=== PATIENT | male | born 1990 | race Caucasian/White ===

== ENCOUNTER 2025-01-29 12:17 | Inpatient (IN) ==
--- NOTE | 2025-01-29 12:42 | Emergency Department Note ---
Impression & Plan Cellulitis of arm, left, Elevated troponin I level ED Provider Note NAME: STARLA SANTOS AGE: 34 SEX: M : 1990 ARRIVES VIA: Walk-In INFORMANT: Patient, ED PROVIDER(S): Collins Medina DO CHIEF COMPLAINT: Cellulitis HPI: The patient is a 34-year-old male who presented to the emergency department for an evaluation of swelling on his left elbow. The patient was seen in our facility yesterday for similar complaints. He was having drainage from the elbow. He was sent home on oral antibiotic x 2 and returns today because of ongoing worsening symptoms. He has noticed night sweats. He did not see his family doctor for the symptoms but came directly to the emergency department. The area was outlined on his left elbow and the erythema seems to be going outside the line. ROS: See above HPI for pertinent positives & negatives. A total of 10 systems reviewed and were otherwise negative. PAST MEDICAL HISTORY: See Below PAST SURGICAL HISTORY: See Below FAMILY HISTORY: See Below SOCIAL HISTORY: See Below HOME MEDICATIONS: See Below ALLERGIES: See Below VITALS: See Below PHYSICAL EXAMINATION: GENERAL: Patient is awake alert in no acute distress patient is resting comfortably and showing no signs of anxiety EYES: The conjunctivae are clear. The pupils are round and reactive. EARS, NOSE, MOUTH AND THROAT: The nose is without any evidence of any deformity. Mucous membranes are moist. Tongue is midline. NECK: The neck is nontender and supple. RESPIRATORY: Normal respiratory effort is noted there is no evidence of wheezing rhonchi or rales CARDIOVASCULAR: Tachycardic and regular heart sounds were noted to auscultation. GASTROINTESTINAL: The abdomen is soft. Abdomen is nontender. MUSCULOSKELETAL/EXTREMITIES: There is no evidence of gross deformity full range of motion is noted in the hips and shoulders. SKIN: There is significant erythema and swelling noted about the left elbow. There is an area over the olecranon which is no longer draining. NEUROLOGIC: Patient is awake alert and oriented x3 MEDICAL DECISION MAKING: The patient is a 34-year-old male who presented to the emergency department for left upper extremity swelling. The patient was recently diagnosed with cellulitis. He was started on a course of antibiotics. The patient returns today because of worsening symptoms. Clinically the patient does have a significant cellulitis. He has significant swelling. I discussed the patient's laboratory and radiographic studies with him. His laboratory results would appear to suggest that he has some degree of sepsis. He was tachycardic. He was treated with IV fluids and IV antibiotics. He was reevaluated multiple times. Ultimately the patient was felt to be a better candidate for inpatient management. For this reason I discussed his condition with the on-call [facility] hospitalist. Triage Nursing notes reviewed. Prior medical records reviewed Vital Signs: reviewed and remarkable for tachycardia. Differential diagnosis: Cellulitis, abscess, MRSA infection, DVT, necrotizing fasciitis, dermatitis, drug eruption, allergic reaction, as well as other pathologies. ER treatment provided: See below Diagnostics interpreted by me: ECG: EKG was obtained in emergency department. My interpretation is sinus tachycardia at 150 bpm. There was no ectopy. Nonspecific ST abnormalities noted, this was compared to a tracing from January 26, 2025. No changes were noted. Cardiac Monitoring: An order was placed for continuous cardiac monitoring. The monitor shows a rate of 106 bpm with sinus tachycardia. Laboratory studies: As stated above and show below. Imaging studies: See below. Radiographic imaging was reviewed by myself Consultation(s): The [facility] hospitalist, Dr. Renteria was notified about the patient. Past Med/Surg History Problem List (Updated 01/29/25 @ 15:46 by Collins Medina DO) Elevated troponin I level (Acute) Cellulitis of arm, left (Acute) Abscess of left olecranon bursa (Acute) Hypertension (Acute) Chest pain (Acute) Sleep apnea Hypothyroidism Vitamin D deficiency Elevated triglycerides with high cholesterol Elevated liver function tests Healthcare maintenance Snoring Medical History No pertinent past medical history Surgical History H/O shoulder surgery Family History Aunt Colorectal cancer Uncle Colorectal cancer Grandfather (Paternal) Myocardial infarction Denies family history of Ovarian cancer Prostate cancer Breast cancer Social History Smoking Status: Former smoker Tobacco Type: Cigarettes Hx Alcohol Use: Yes Hx Substance Use: No Preferred Language: Greenlandic Visual Impairment: No Limitations Hearing Ability: Normal marital status: Life Partner Current Living Situation: Significant Other current occupational status: unemployed Feels Safe at Home: Yes Childhood Exposure to Second-Hand Smoke: Yes Dental Care, Regularly: Yes Physical Activity Frequency: Does not Exercise Seatbelt Use: always Allergies Allergies Allergy/AdvReac Type Severity Reaction Status Date / Time No Known Allergies Allergy Verified 01/14/21 14:29 Home Meds Home Medications Medication Instructions Recorded Confirmed Auto Titrating CPAP 01/28/25 01/28/25 Previous Rx's Medication Instructions Recorded amlodipine 5 mg tablet (Norvasc) 5 mg PO DAILY #30 tabs 01/26/25 pantoprazole 40 mg tablet,delayed 40 mg PO DAILY #30 tabs 01/26/25 release (Protonix) amoxicillin 875 mg-potassium 1 tab PO BID 10 days #20 tabs 01/28/25 clavulanate 125 mg tablet naproxen 500 mg tablet 500 mg PO BID PRN pain #20 tabs 01/28/25 sulfamethoxazole 800 1 tab PO Q12H 10 days #20 tabs 01/28/25 mg-trimethoprim 160 mg tablet (Bactrim DS) Results & Data (ED) Vital Signs Vital Signs - 24 hr 01/29/25 12:18 01/29/25 12:28 01/29/25 12:37 Temperature 36.8 C Temperature Source Oral Pulse Rate 122 H 113 H Pulse Rate [Apical] 117 H Pulse Rhythm Regular Pulse Rhythm [Apical] Regular Pulse Strength [Apical] Normal Respiratory Rate 18 18 21 Respiratory Effort / Characteristics Non-Labored Spontaneous Non-Labored Spontaneous Respiratory Depth Normal Normal Respiratory Pattern Regular Blood Pressure 125/82 Blood Pressure [Right Arm] Blood Pressure Mean 96 Blood Pressure Mean [Right Arm] Blood Pressure Position Sitting Blood Pressure Position [Right Arm] Sitting Pulse Oximetry 96 96 Oxygen Delivery Method Room Air Room Air Room Air Sepsis Recent Fever Within 48 Hours No Sepsis New/Unexplained Change in Mental Status No Sepsis Action Taken by Nursing No Action Required 01/29/25 12:37 01/29/25 12:51 01/29/25 12:52 Temperature Temperature Source Pulse Rate 113 H Pulse Rate [Apical] 116 H 113 H Pulse Rhythm Pulse Rhythm [Apical] Pulse Strength [Apical] Respiratory Rate 20 19 Respiratory Effort / Characteristics Non-Labored Spontaneous Respiratory Depth Normal Respiratory Pattern Blood Pressure Blood Pressure [Right Arm] 125/88 128/86 Blood Pressure Mean Blood Pressure Mean [Right Arm] 100 100 Blood Pressure Position Blood Pressure Position [Right Arm] Pulse Oximetry 96 97 Oxygen Delivery Method Room Air Sepsis Recent Fever Within 48 Hours Sepsis New/Unexplained Change in Mental Status Sepsis Action Taken by Nursing 01/29/25 13:07 01/29/25 13:51 01/29/25 14:45 Temperature Temperature Source Pulse Rate Pulse Rate [Apical] 110 H 107 H Pulse Rhythm Pulse Rhythm [Apical] Pulse Strength [Apical] Respiratory Rate 20 Respiratory Effort / Characteristics Non-Labored Spontaneous Respiratory Depth Normal Respiratory Pattern Regular Blood Pressure 126/78 Blood Pressure [Right Arm] 128/86 128/86 Blood Pressure Mean 87 Blood Pressure Mean [Right Arm] 100 100 Blood Pressure Position Blood Pressure Position [Right Arm] Pulse Oximetry 97 95 Oxygen Delivery Method Room Air Sepsis Recent Fever Within 48 Hours Sepsis New/Unexplained Change in Mental Status Sepsis Action Taken by Nursing 01/29/25 15:28 Temperature Temperature Source Pulse Rate Pulse Rate [Apical] 106 H Pulse Rhythm Pulse Rhythm [Apical] Pulse Strength [Apical] Respiratory Rate 20 Respiratory Effort / Characteristics Non-Labored Spontaneous Respiratory Depth Normal Respiratory Pattern Blood Pressure Blood Pressure [Right Arm] Blood Pressure Mean Blood Pressure Mean [Right Arm] Blood Pressure Position Blood Pressure Position [Right Arm] Pulse Oximetry 97 Oxygen Delivery Method Room Air Sepsis Recent Fever Within 48 Hours Sepsis New/Unexplained Change in Mental Status Sepsis Action Taken by Long Term Medications Current Medication List: was personally reviewed by me Laboratory Data Attestation: I reviewed the patient's lab results. 01/29/25 12:40 01/29/25 12:40 Lab Results 01/29/25 01/29/25 Range/Units 12:40 14:49 WBC 14.46 H (4.8-10.8) K/ul RBC 4.27 L (4.70-6.10) M/uL Hgb 14.4 (14.0-18.0) g/dl Hct 40.7 L (42.0-52.0) % MCV 95.3 (80.0-100.0) fL MCH 33.7 (25.0-34.0) pg MCHC 35.4 (32.0-36.0) g/dL RDW Std Deviation 47.3 H (36.4-46.3) fL RDW Coeff of Jc 13.6 (11.5-14.5) % Plt Count 146 (130-400) K/uL MPV 11.1 (9.4-12.4) fL Immature Gran % (Auto) 4.4 % Neut % (Auto) 81.9 % Lymph % (Auto) 8.0 % Grant % (Auto) 5.0 % Eos % (Auto) 0.2 % Baso % (Auto) 0.5 % Neut # (Auto) 11.85 H (1.40-6.50) K/uL Lymph # (Auto) 1.15 L (1.20-3.40) K/uL Grant # (Auto) 0.72 H (0.11-0.59) K/uL Eos # (Auto) 0.03 (0.00-0.50) K/uL Baso # (Auto) 0.07 (0.00-0.20) K/uL Immature Gran # (Auto) 0.64 H (0.01-0.20) K/uL Toxic Granulation 1+ Toxic Vacuolation 1+ Polychromasia 1+ Tear Drop Cells 1+ Sodium 133 L (136-145) mmol/L Potassium 3.4 L (3.5-5.1) mmol/L Chloride 95 L (98-107) mmol/L Carbon Dioxide 26 (21-32) mmol/L Anion Gap 12 H (3-11) BUN 18 (6-23) mg/dl Creatinine 0.78 (0.6-1.4) mg/dl Est Cr Clr Drug Dosing 177.2 ml/min eGFR 120.76 BUN/Creatinine Ratio 23.1 H (10-20) Glucose 131 H (70-99(Fasting)) mg/dl Lactate 1.8 (0.4-2.0) mmol/L Calcium 10.5 H (8.6-10.3) mg/dl Magnesium 0.9 L* (1.7-2.4) mg/dl Total Bilirubin 2.7 H (0.2-1.0) mg/dl Direct Bilirubin 1.6 H (0-0.2) mg/dl AST 65 H (13-39) U/L ALT 49 (7-52) U/L Alkaline Phosphatase 95 (34-104) U/L Troponin I High Sens 42.7 H 40.7 H (0-20) pg/ml Total Protein 8.2 (6.0-8.3) gm/dl Albumin 4.2 (3.4-5.0) gm/dl Procalcitonin 2.93 H (0-0.5) ng/ml Administered Medications Vancomycin HCl 2,000 mg/ (Sodium Chloride) 540 mls @ 200 mls/hr IV NOW ONE Stop: 01/29/25 16:14 Last Admin: 01/29/25 14:35 Dose: 200 mls/hr Documented By: LES Discontinued Medications Ceftriaxone Sodium (Rocephin) 2,000 mg in 50 mls @ 100 mls/hr IV NOW STA Stop: 01/29/25 13:07 Last Infusion: 01/29/25 13:53 Dose: Infused Documented By: Admin: 01/29/25 13:10 Dose: 100 mls/hr Documented By: MYA Magnesium Sulfate/Dextrose (Magnesium Sulfate / D5w) 1 gm in 100 mls @ 100 mls/hr IV Q1H VICKY Stop: 01/29/25 15:32 Last Admin: 01/29/25 14:53 Dose: 100 mls/hr Documented By: Infusion: 01/29/25 14:53 Dose: Infused Documented By: Admin: 01/29/25 14:00 Dose: 100 mls/hr Documented By: MYA Thiamine HCl 200 mg/ Sodium (Chloride) 52 mls @ 210 mls/hr IV NOW STA Stop: 01/29/25 13:47 Last Infusion: 01/29/25 14:34 Dose: Infused Documented By: Admin: 01/29/25 14:17 Dose: 210 mls/hr Documented By: LES Sodium Chloride (Nss) 1,000 mls @ 999 mls/hr IV .Q1H1M ONE Stop: 01/29/25 14:33 Last Infusion: 01/29/25 15:20 Dose: Infused Documented By: [facility] Admin: 01/29/25 13:58 Dose: 999 mls/hr Documented By: MYA Sodium Chloride (Nss) 1,000 mls @ 999 mls/hr IV .Q1H1M ONE Stop: 01/29/25 15:28 Last Admin: 01/29/25 14:37 Dose: 999 mls/hr Documented By: LES Potassium Chloride (Potassium Chloride 10 Meq Tabcr) 10 meq PO NOW STA Stop: 01/29/25 13:34 Last Admin: 01/29/25 15:19 Dose: Not Given Documented By: MARCY Imaging Data Attestation: I personally reviewed and interpreted this imaging study as follows: My Impression: 1 view chest x-ray was obtained in the emergency department. My interpretation is no free air or definite infiltrate, final report below. Radiologist's Impression: Chest X-Ray 01/29/25 12:37 XR chest 1V portable HISTORY: 34 years-old Male Sepsis acute sepsis COMPARISON: Chest radiograph and CTA chest January 26, 2025 TECHNIQUE: AP view of the chest FINDINGS: Cardiac silhouette is upper limits of normal in size. No pneumothorax, pleural effusion, airspace consolidation or pulmonary edema. Bones appear grossly intact. IMPRESSION: No acute process. ACT 112: Negative or not required by law. The above report was generated using voice recognition software. It may contain grammatical, syntax or spelling errors. Electronically signed by: Quinn Lima M.D. 01/29/2025 1:19 PM Discharge Plan Visit Data Chief Complaint: Infection Stated Complaint: INFECTION ED Provider: Collins Medina Discharge Problem: Cellulitis of arm, left, Elevated troponin I level Patient Disposition: Being Evaluated by Hospitalist Condition: Fair Forms Stand Alone Forms: My [facility] [employer] Prescriptions Prescriptions: No Action pantoprazole [Protonix] 40 mg tablet,delayed release (DR/EC) 40 mg PO DAILY Qty: 30 0RF amlodipine [Norvasc] 5 mg tablet 5 mg PO DAILY Qty: 30 0RF (DME) Auto Titrating CPAP Misc Rx Instructions: 5 to 15 cm of water, mask fit patient comfort, heated modification, compliance download capabilities, aero care; sulfamethoxazole-trimethoprim [Bactrim DS] 800-160 mg tablet 1 tab PO Q12H 10 Days Qty: 20 0RF naproxen 500 mg tablet 500 mg PO BID PRN (Reason: pain) Qty: 20 0RF amoxicillin-pot clavulanate 875-125 mg tablet 1 tab PO BID 10 Days Qty: 20 0RF Referrals Referrals: PCP,NO [Primary Care Provider] -
[2025-01-29 13:01] LABS: Hematocrit (blood only) 40.7 % (42.0-52.0); Hemoglobin 14.4 g/dl (14.0-18.0); Mean Corpuscular Hemoglobin 33.7 pg (25.0-34.0); Mean Corpuscular Volume 95.3 fL (80.0-100.0); Platelet Count 146 K/uL (130-400); RDW Standard Deviation 47.3 fL (36.4-46.3); Red Blood Count 4.27 M/uL (4.70-6.10); White Blood Count 14.46 K/ul (4.8-10.8)
[2025-01-29] MEDS: cefTRIAXone SODIUM 2,000 MG/50 ML BAG IV STA (13:10)
[2025-01-29 13:19] LABS: Anion Gap 12.0 (3-11); Blood Urea Nitrogen 18.0 mg/dl (6-23); Calcium 10.5 mg/dl (8.6-10.3); Carbon Dioxide 26.0 mmol/L (21-32); Chloride 95.0 mmol/L (98-107); Creatinine Clr Calc Pharmacy 177.2 ml/min; Glucose 131.0 mg/dl (70-99(Fasting)); Potassium 3.4 mmol/L (3.5-5.1); Sodium 133.0 mmol/L (136-145)
--- NOTE | 2025-01-29 13:20 | XRay Report ---
XR chest 1V portable HISTORY: 34 years-old Male Sepsis acute sepsis COMPARISON: Chest radiograph and CTA chest January 26, 2025 TECHNIQUE: AP view of the chest FINDINGS: Cardiac silhouette is upper limits of normal in size. No pneumothorax, pleural effusion, airspace con solidation or pulmonary edema. Bones appear grossly intact. IMPRESSION: No acute process. ACT 112: Negative or not required by law. The above report was generated using voice recognition software. It may contain grammatical, syntax o r spelling errors. Electronically signed by: Quinn Lima M.D. 01/29/2025 1:19 PM
[2025-01-29 13:27] LABS: Alanine Aminotransferase 49.0 U/L (7-52); Alkaline Phosphatase 95.0 U/L (34-104); Bilirubin,Total 2.7 mg/dl (0.2-1.0); Total Protein 8.2 gm/dl (6.0-8.3)
[2025-01-29 13:28] LABS: Magnesium 0.9 mg/dl (1.7-2.4)
[2025-01-29] MEDS ORDERED: VANCOMYCIN CONSULT ACTIVE PRN ×2 (13:33→15:09)
[2025-01-29 13:34] LABS: Immature Granulocytes # (auto) 0.64 K/uL (0.01-0.20); Immature Granulocytes % (auto) 4.4 %; Polychromasia 1+; Tear Drop Cells 1+; Toxic Granulation 1+; Toxic Vacuolation 1+
[2025-01-29] MEDS: SODIUM CHLORIDE 0.9% 1,000 ML IV ONE ×2 (13:58→14:37)
[2025-01-29] MEDS: MAGNESIUM SULFATE / D5W 1 GM/100 ML BAG IV SCH ×2 (14:00→16:00)
[2025-01-29] MEDS: THIAMINE HCL 200 MG in SODIUM CHLORIDE 0.9% 50 ML IV STA (14:17)
[2025-01-29] MEDS: VANCOMYCIN HCL 2,000 MG in SODIUM CHLORIDE 0.9% 500 ML IV ONE (14:35)
[2025-01-29] MEDS: POTASSIUM CHLORIDE 10 MEQ TABCR PO STA (15:19)
--- NOTE | 2025-01-29 15:24 | Electrocardiogram Report ---
Test Reason : Blood Pressure : */* mmHG Vent. Rate : 115 BPM Atrial Rate : 115 BPM P-R Int : 146 ms QRS Dur : 94 ms QT Int : 322 ms P-R-T Axes : 64 5 -21 degrees QTcB Int : 445 ms Sinus tachycardia Possible Left atrial enlargement Minimal voltage criteria for LVH, may be normal variant Cannot rule out Inferior infarct , age undetermined Nonspecific ST abnormality Abnormal ECG When compared with ECG of 26-Jan-2025 10:41, Nonspecific T wave abnormality, worse in Inferior leads Nonspecific T wave abnormality now evident in Lateral leads Confirmed by Chay Jessica ([id number]) on 01/29/2025 3:24:23 PM Referred By: Confirmed By: Chay Jessica
[2025-01-29] MEDS: POTASSIUM CHLORIDE CRTAB 20 MEQ TABCR PO STA (16:00)
[2025-01-29] MEDS: ACETAMINOPHEN 325 MG TAB PO PRN (16:02)
[2025-01-29] MEDS ORDERED: diphenhydrAMINE 50 MG/ML VIAL IV PRN (16:23)
--- NOTE | 2025-01-29 17:04 | History & Physical Report ---
Date of Service January 29, 2025 Assessment & Plan (1) Severe sepsis: Plan: As above in the History of Present Illness. (2) Acute hyponatremia: Plan: As above in the History of Present Illness. (3) Acute hypokalemia: Plan: As above in the History of Present Illness. (4) Hypercalcemia: Plan: As above in the History of Present Illness. (5) Hypomagnesemia: Plan: As above in the History of Present Illness. (6) Transaminitis: Plan: As above in the History of Present Illness. (7) Hyperbilirubinemia: Plan: As above in the History of Present Illness. (8) Demand ischemia: Plan: As above in the History of Present Illness. (9) MARISSA (obstructive sleep apnea): Plan: Non-compliant with CPAP at home. Observe as patient reports no daytime somnolence. (10) ETOH abuse: Plan: No signs of acute ETOH withdrawal on 01/29/2025 admission date. Of note, patient's sinus tachycardia is due to severe sepsis, not yet septic shock, due to acute left olecranon cellulitis with group A beta hemolytic Streptococcus pyogenes (as noted on 01/28/2025, 5:15pm left elbow I & D culture), R/O streptococcal osteomyelitis of left olecranon, R/O streptococcal bacteremia, R/O invasive streptococcal necrotizing fasciitis. Hence, I have not started patient on CIWA scale or librium/lorazepam schedule on 01/29/2025 admission date. History of Present Illness Chief Complaint: "On Tuesday morning (01/26/2025, 11:00am), I saw a scratch on my left elbow. It did not bleed or itch. I did not have a bug bite there. I didn't fall down or bump into something or anything. I don't know how it got there." "On Tuesday morning (01/27/2025, 9:00am), my left elbow was the size of a baseball. It was red and warm and hurt a little." "On Tuesday evening (01/27/2025, 9:00pm), I started sweating a lot. All night long. And on and on through Tuesday (01/28/2025) and Tuesday (01/29/2025) constant sweating, but no fever or chills. The pain in my left elbow was a lot now, like a 10 (out of 10 point intensity scale) constant pain, and I have not been able to sleep since Tuesday evening (01/27/2025, 9:00pm). "On Tuesday afternoon (01/28/2025, 3:30pm), my left elbow and forearm were really swollen, so I came to [facility] ER, and the ER doctor drained a lot of pus (cf., 01/28/2025, 5:15pm left elbow wound culture demonstrates on 01/29/2025, 9:43am the presence of group A beta hemolytic Streptococcus pyogenes ) and said that I could go home with augmentin 875/125mg PO bid and bactrim DS 800/160mg PO bid, so I went home on Tuesday evening (01/28/2025, 8:15pm), and I took 2 tablets each of the augmentin and the bactrim, but they did not help at all. The swelling got worse and the redness went way past the line the ER doctor sandy on my left elbow and forearm, so I came back to [facility] ER this afternoon (01/29/2025, 12:15pm)." "The ER doctor said I am septic from the infection in my left elbow and that I have to stay to get IV antibiotics now. The pain is still a constant 10 (out of 10 point intensity scale), but I do NOT want to get any narcotics because I have had problems with narcotics in the past and I don't want to get hooked on narcotics. Tylenol IV and toradol IV are fine with me." Primary Care Provider: NO PCP 34 years old male with PMH of FULL CODE @ home, obesity with BMI 34.7 (height 182.9 cm, weight 116.1 kg), former tobacco abuse (cf., patient reports having quit smoking tobacco 2 days ago; previously, patient conceded to smoking 10 cigarettes per day for 7 years) with no subsequent diagnosis of COPD, not on home O2 or home steroids, former ETOH abuse (cf., patient reports having quit drinking 2 days ago; previously, patient conceded to quafffing 1 gallon of vodka per day for 10 years) with no subsequent diagnosis of alcoholic hepatitis or alcoholic cirrhosis, but nominal elevation in AST with baseline range of 123 U/L (07/21/2020, 12:53pm) to 53 U/L (01/28/2025, 4:20pm), former opiate abuse (cf., patient reports having quit abusing oxycodone several years ago; previously, patient conceded to using several oxycodone tablets a day for 10 years) with no subsequent maintenance regimen of methadone, MARISSA non-compliant with CPAP, HTN on amlodipine 5mg PO daily, GERD on protonix 40mg PO daily, who reports: "On Tuesday morning (01/26/2025, 11:00am), I saw a scratch on my left elbow. It did not bleed or itch. I did not have a bug bite there. I didn't fall down or bump into something or anything. I don't know how it got there." "On Tuesday morning (01/27/2025, 9:00am), my left elbow was the size of a baseball. It was red and warm and hurt a little." "On Tuesday evening (01/27/2025, 9:00pm), I started sweating a lot. All night long. And on and on through Tuesday (01/28/2025) and Tuesday (01/29/2025) constant sweating, but no fever or chills. The pain in my left elbow was a lot now, like a 10 (out of 10 point intensity scale) constant pain, and I have not been able to sleep since Tuesday evening (01/27/2025, 9:00pm). "On Tuesday afternoon (01/28/2025, 3:30pm), my left elbow and forearm were really swollen, so I came to [facility] ER, and the ER doctor drained a lot of pus (cf., 01/28/2025, 5:15pm left elbow wound culture demonstrates on 01/29/2025, 9:43am the presence of group A beta hemolytic Streptococcus pyogenes ) and said that I could go home with augmentin 875/125mg PO bid and bactrim DS 800/160mg PO bid, so I went home on Tuesday evening (01/28/2025, 8:15pm), and I took 2 tablets each of the augmentin and the bactrim, but they did not help at all. The swelling got worse and the redness went way past the line the ER doctor sandy on my left elbow and forearm, so I came back to [facility] ER this afternoon (01/29/2025, 12:15pm)." "The ER doctor said I am septic from the infection in my left elbow and that I have to stay to get IV antibiotics now. The pain is still a constant 10 (out of 10 point intensity scale), but I do NOT want to get any narcotics because I have had problems with narcotics in the past and I don't want to get hooked on narcotics. Tylenol IV and toradol IV are fine with me." Patient denies antecedent/coincident fevers, chills, cough, wheeze, sore throat, hemoptysis, shortness of breath, dyspnea on exertion, chest pains, palpitations, pleurisy, nausea, vomiting, diarrhea, abdominal pain, pelvic pain, hematemesis, hematochezia, melena, hematuria, dysuria, frequency, urgency, headaches, dizziness, lightheadedness, visual changes, hearing changes, weakness, falls, syncope, trauma, travel history, sick contacts, or food/drug ingestions novel or new. All other review of systems are reported as negative by the patient on 01/29/2025. In [facility] ER, patient was afebrile @ 36.8 degrees Celsius, HR 122, RR 18, O2 sat 96% on room air, and BP 125/82 (01/29/2025, 12:28pm). cf., repeat RR 21 (01/29/2025, 12:37pm). Exam was noted for a left olecranon bursa that was edematous and fluctuant with thick white purulent discharge from incision site (01/28/2025, 5:15pm, [facility] ER). Exquisite tenderness @ left olecranon with induration, warmth, and circumferential, bright erythema extending far beyond the demarcation lines drawn on 01/28/2025, 5:15pm, [facility] ER), to involve the volar aspect of patient's left forearm, but sparing the left wrist, left hand, and left fingers #1 through #5 completely as of 01/29/2025, 3:04pm, and patient demonstrating the ability to clench the left hand tightly into a fist, but being unable to pronate or supinate the left forearm at all due to sharp pain(s) @ left olecranon when pronating or supinating the left forearm. Of note, there was no malodor, no ulceration, no lymphangitic streaking, no excoriation, and no lichenification associated with this exanthem. In addition, patient reported some "fullness" in the left ear, but otoscopic exam of both left ear and right ear revealed no tenderness of the auditory canals; complete translucency of bilateral tympanic membranes, both of which remained intact/preserved without perforation; absence of hyperemia of the auditory canals and tympanic membranes; and absence of effusion posterior to either tympanic membranes. In addition, patient reported no tenderness on tugging of the tragus/auricle bilaterally and no tenderness on deep palpation of the mastoid bone bilaterally. Labs in [facility] ER included: WBC 14.46, N82 L8 M5 B1, toxic granulation 1+, toxic vacuolation 1+, polychromasia 1+, and tear drop cells 1+, Hb 14.4, MCV 95.3, MCHC 35.4, platelet 146 (01/29/2025, 12:40pm). CRP 22.26 mg/dL (01/29/2025, 2:49pm). ESR 98 mm/hr (01/29/2025, 12:40pm). Procalcitonin #1 2.93 ng/mL (01/29/2025, 12:40pm). Lactic acid #1 1.8 mmol/L (01/29/2025, 12:40pm). Lactic acid #2 (01/29/2025, 4:40pm). Blood culture #3 (01/29/2025, 12:40pm): Blood culture #4 (01/29/2025, 12:53pm): U/A (01/29/2025, 12:37pm): U/A (01/29/2025, 5:25pm): Na 133, K 3.4, BUN 18, creatinine 0.78, glucose 131, Ca 10.5, Mg 0.9, AST 65, ALT 49, ALK PHOS 95, TBili 2.7, DBili 1.6 (01/29/2025, 12:40pm). Troponin-I #1 42.7 pg/mL (01/29/2025, 12:40pm). Troponin-I #2 40.7 pg/mL (01/29/2025, 2:49pm). Additional testing in [facility] ER included: Portable CXR (01/29/2025, 12:37pm): No infiltrate, effusion, cardiomegaly, pulmonary vascular congestion, or pneumothorax (by my review). EKG (01/29/2025, 12:48pm): sinus tach @ 115, SC 146, QTC 445, LAE in II, no acute ST depressions/elevations, TWI, or q waves (by my review). Historical testing in [facility] ER included: Blood culture #1 (01/28/2025, 4:20pm): Blood culture #2 (01/28/2025, 6:42pm): Left elbow I & D culture (01/28/2025, 5:15pm): group A beta hemolytic Streptococcus pyogenes Left elbow x-ray (01/28/2025, 5:15pm): 1. No fracture or dislocation is seen. 2. No significant arthritic changes are noted. 3. No other osseous abnormality is identified. 4. No radiopaque foreign bodies. D-dimer 510 ug/L (01/26/2025, 10:56am). CTA chest (01/26/2025, 12:01pm): No PE. CT abd/pelvis with IV contrast (01/26/2025, 12:01pm): No acute intra-abdominal or intra-pelvic pathology. EKG (01/26/2025, 10:41am): NSR @ 97, SC 144, QTC 472, LAE in II, no acute ST depressions/elevations, TWI, or q waves (by my review). Patient was subsequently admitted to the inpatient hospitalist service @ [facility] on 01/29/2025 with the following diagnoses: 1. Severe sepsis, not yet septic shock, due to acute left olecranon cellulitis with group A beta hemolytic Streptococcus pyogenes (as noted on 01/28/2025, 5:15pm left elbow I & D culture), R/O streptococcal osteomyelitis of left olecranon, R/O streptococcal bacteremia, R/O invasive streptococcal necrotizing fasciitis. 2. Acute hypovolemic hyponatremia with admission Na 133 mmol/L (01/29/2025, 12:40pm). 3. Acute hypokalemia with admission K 3.4 mmol/L (01/29/2025, 12:40pm). 4. Acute hypercalcemia with admission Ca 10.5 mg/dL (01/29/2025, 12:40pm). 5. Acute hypomagnesemia with admission Mg 0.9 mg/dL (01/29/2025, 12:40pm). 6. Chronic transaminitis with admission AST 65 U/L (01/29/2025, 12:40pm). 7. Acute hyperbilirubinemia with admission TBili 2.7 mg/dL, DBili 1.6 mg/dL (01/29/2025, 12:40pm). 8. Acute type II NSTEMI with troponin-I #1 42.7 pg/mL (01/29/2025, 12:40pm), troponin-I #2 40.7 pg/mL (01/29/2025, 2:49pm), due to demand ischemia, due to severe sepsis, not yet septic shock, due to acute left olecranon cellulitis with group A beta hemolytic Streptococcus pyogenes (as noted on 01/28/2025, 5:15pm left elbow I & D culture), R/O streptococcal osteomyelitis of left olecranon, R/O streptococcal bacteremia, R/O invasive streptococcal necrotizing fasciitis. To address #1, patient received ceftriaxone 2g IV x 1 dose (01/29/2025, 1:10pm) and vancomycin 2g IV x 1 dose (01/29/2025, 2:35pm) in [facility] ER bed #C03. Patient will continue with vancomycin 2g IV q12 (day #1 on 01/30/2025, 2:35am), clindamycin 900mg IV q8 (day #1 on 01/29/2025, 5:15pm), and meropenem 1g IV q8 (day #1 on 01/29/2025, 10:00pm) empirically, under the premise that this patient may not only be suffering from streptococcal cellulitis, but may be suffering from concomitant streptococcal osteomyelitis of the left olecranon, streptococcal bacteremia and/or invasive streptococcal necrotizing fasciitis. To this end, I have ordered MRI left elbow with/without IV contrast (01/29/2025, 5:37pm) and I have solicited formal Orthopedic Surgery Service of Dr. Artie Astudillo to evaluate patient for possible invasive streptococcal necrotizing fasciitis. In the interim, I will check repeat vitals, left olecranon/arm exam, WBC w/diff, ESR, CRP, lactic acid, procalcitonin, and Blood culture #1 (01/28/2025, 4:20pm) Blood culture #2 (01/28/2025, 6:42pm) Blood culture #3 (01/29/2025, 12:40pm) Blood culture #4 (01/29/2025, 12:53pm) in the 01/30/2025 am. To address #2, patient received 1 liter of 0.9% NS @ 999 mL/hr (01/29/2025, 1:58pm) and 1 liter of 0.% NS @ 999 mL/hr (01/29/2025, 2:37pm) in [facility] ER bed #C03. I will check repeat Na level in the 01/30/2025 am. Of note, etiology of acute hypovolemic hyponatremia is most probably due to increased insensible losses of sodium due to perspiration and respiration due to severe sepsis, due to acute left olecranon cellulitis with group A beta hemolytic Streptococcus pyogenes (as noted on 01/28/2025, 5:15pm left elbow I & D culture), R/O streptococcal osteomyelitis of left olecranon, R/O streptococcal bacteremia, R/O invasive streptococcal necrotizing fasciitis. To address #3, patient will receive KCl 10mmol IV x 3 doses (starting on 01/29/2025, 4:30pm) in [facility] ER bed #C03. I will check repeat K level in the 01/30/2025 am. Of note, etiology of acute hypokalemia is most probably due to chronic ETOH-mediated faraz-uresis. To address #4, patient received 1 liter of 0.9% NS @ 999 mL/hr (01/29/2025, 1:58pm) and 1 liter of 0.% NS @ 999 mL/hr (01/29/2025, 2:37pm) in [facility] ER bed #C03. I will check repeat Ca level in the 01/30/2025 am. Of note, etiology of acute hypercalcemia is most probably due to acute dehydration, which is due, in turn, to increased insensible losses of water due to perspiration and respiration due to severe sepsis, due to acute left olecranon cellulitis with group A beta hemolytic Streptococcus pyogenes (as noted on 01/28/2025, 5:15pm left elbow I & D culture), R/O streptococcal osteomyelitis of left olecranon, R/O streptococcal bacteremia, R/O invasive streptococcal necrotizing fasciitis. To address #5, patient received magnesium sulfate 1g IV x 2 doses (01/29/2025, 2:00pm, 2:53pm), followed by magnesium sulfate 1g IV x 2 doses (01/29/2025, 4:00pm, 5:00pm) in [facility] ER bed #C03. I will check repeat mg level in the 01/30/2025 am. Of note, etiology of acute hypomagnesemia is most probably due to chronic ETOH-mediated magne-uresis. To address #6, patient awaits repeat AST level testing in the 01/30/2025 am. To address #7, patient awaits TBili and DBili testing in the 01/30/2025 am. To address #8, patient is being observed without further evaluation or interve ntion. Allergies Allergy/AdvReac Type Severity Reaction Status Date / Time No Known Allergies Allergy Verified 01/14/21 14:29 Home Medications Medication Instructions Recorded Confirmed Type amlodipine 5 mg tablet (Norvasc) 5 mg PO DAILY #30 tabs 01/26/25 01/29/25 Rx pantoprazole 40 mg tablet,delayed 40 mg PO DAILY #30 tabs 01/26/25 01/29/25 Rx release (Protonix) Auto Titrating CPAP 01/28/25 01/28/25 History amoxicillin 875 mg-potassium 1 tab PO BID 10 days #20 tabs 01/28/25 01/29/25 Rx clavulanate 125 mg tablet naproxen 500 mg tablet 500 mg PO BID PRN pain #20 tabs 01/28/25 01/29/25 Rx sulfamethoxazole 800 1 tab PO Q12H 10 days #20 tabs 01/28/25 01/29/25 Rx mg-trimethoprim 160 mg tablet (Bactrim DS) Past Med/Surg History Problem List (Updated 01/29/25 @ 18:00 by Avni Varghese MD, PhD) ETOH abuse MARISSA (obstructive sleep apnea) Demand ischemia Hyperbilirubinemia Transaminitis Hypomagnesemia Hypercalcemia Acute hypokalemia Acute hyponatremia Severe sepsis Elevated troponin I level (Acute) Cellulitis of arm, left (Acute) Abscess of left olecranon bursa (Acute) Hypertension (Acute) Chest pain (Acute) Sleep apnea Hypothyroidism Vitamin D deficiency Elevated triglycerides with high cholesterol Elevated liver function tests Healthcare maintenance Snoring Medical History No pertinent past medical history Surgical History H/O shoulder surgery Family History Aunt Colorectal cancer Uncle Colorectal cancer Grandfather (Paternal) Myocardial infarction Denies family history of Ovarian cancer Prostate cancer Breast cancer Social History Smoking Status: Former smoker Tobacco Type: Cigarettes Hx Alcohol Use: Yes Hx Substance Use: No Preferred Language: Armenian Visual Impairment: No Limitations Hearing Ability: Normal marital status: Life Partner Current Living Situation: Significant Other current occupational status: unemployed Feels Safe at Home: Yes Childhood Exposure to Second-Hand Smoke: Yes Dental Care, Regularly: Yes Physical Activity Frequency: Does not Exercise Seatbelt Use: always Review of Systems Constitutional: As above in the History of Present Illness. Physical Exam Constitutional: General appearance: Uncomfortable with patient pointing to his left olecranon/left forearm, yet coherent, cooperative. Wide awake and alert. Not confused, lethargic, or obtunded. Speaks in complete, fluent, and articulate sentences without pause, interruption, cough, or wheeze. HEENT: Normocephalic; atraumatic. EOMI. PERRL No rhinorrhea. No pharyngeal discharge. Neck: Supple, no stridor, bruit, goiter, JVD, or HJR. Lymph: No lymphadenopathy. Chest: Symmetric rise and fall with respirations. Non-tender to palpation. Lungs: Clear to auscultation and percussion. No audible wheeze, pectoriloquy, increase in tactile fremitus, or flatness/dullness to percussion at the bases. Heart: RRR, S1S2, no S3 or S4. Grade II/ early systolic murmur @ LLSB without radiation to the carotids, axilla, or back, and which remains invariant in regards to the respiratory cycle. Abd: Soft, non-tender, non-distended. No rebound, guarding, Herbert's sign, or organomegaly. Bowel sounds auscultated in all 4 quadrants. Ext: No clubbing, cyanosis, or edema. 2+ pedal pulses bilaterally. Skin: No decubitus ulcer or enanthem. Exquisite tenderness @ left olecranon with induration, warmth, and circumferential, bright erythema extending far beyond the demarcation lines drawn on 01/28/2025, 5:15pm, [facility] ER), to involve the volar aspect of patient's left forearm, but sparing the left wrist, left hand, and left fingers #1 through #5 completely as of 01/29/2025, 3:04pm, and patient demonstrating the ability to clench the left hand tightly into a fist, but being unable to pronate or supinate the left forearm at all due to sharp pain(s) @ left olecranon when pronating or supinating the left forearm. Of note, there was no malodor, no ulceration, no lymphangitic streaking, no excoriation, and no lichenification associated with this exanthem. In addition, patient reported some "fullness" in the left ear, but otoscopic exam of both left ear and right ear revealed no tenderness of the auditory canals; complete translucency of bilateral tympanic membranes, both of which remained intact/preserved without perforation; absence of hyperemia of the auditory canals and tympanic membranes; and absence of effusion posterior to either tympanic membranes. In addition, patient reported no tenderness on tugging of the tragus/auricle bilaterally and no tenderness on deep palpation of the mastoid bone bilaterally. Neuro: Alert and oriented in regards to person, place, time, or situation. 5/5 motor strength in all 4 extremities, both proximally and distally. Urology: No li catheter. No urethral discharge. Psych: No suicidal ideation. No homicidal ideation. Results & Data Results & Data Vital Signs (Past 12 Hours) Vital Signs Temp Pulse Pulse Resp BP BP Pulse Ox 01/29/25 16:04 102 H 22 134/93 95 01/29/25 15:28 106 H 20 97 01/29/25 14:45 126/78 01/29/25 13:51 107 H 128/86 95 01/29/25 13:07 110 H 20 128/86 97 01/29/25 12:52 113 H 19 128/86 97 01/29/25 12:51 113 H 01/29/25 12:37 116 H 20 125/88 96 01/29/25 12:37 113 H 21 96 01/29/25 12:28 36.8 C 122 H 18 125/82 96 01/29/25 12:18 117 H 18 O2 Del Method 01/29/25 16:04 Room Air 01/29/25 15:28 Room Air 01/29/25 14:45 01/29/25 13:51 Room Air 01/29/25 13:07 01/29/25 12:52 Room Air 01/29/25 12:51 01/29/25 12:37 01/29/25 12:37 Room Air 01/29/25 12:28 Room Air 01/29/25 12:18 Room Air Laboratory Results As above in the History of Present Illness. Diagnostic Findings As above in the History of Present Illness. Medications Administered As above in the History of Present Illness. Code Status & VTE Plan VTE Prophylaxis Plan VTE Prophylaxis will be ordered: Yes PG Care Time/CCT Total # of Minutes Spent Total Time Spent with Patient: Total time spent is greater than 50% in coordination of care (as documented) at patient's floor/unit and/or counseling patient: Coding Level of Care Code 30217 INT INP/OBS CARE 3/75MIN Diagnoses Severe sepsis A41.9; R65.20 Acute hyponatremia E87.1 Acute hypokalemia E87.6 Hypercalcemia E83.52 Hypomagnesemia E83.42 Transaminitis R74.01 Hyperbilirubinemia E80.6 Demand ischemia I24.89 MARISSA (obstructive sleep apnea) G47.33 ETOH abuse F10.10
[2025-01-29] MEDS: ACETAMINOPHEN 1,000 MG/100 ML VIAL IV STA (17:05)
[2025-01-29] MEDS: KETOROLAC 30 MG/ML VIAL IV STA (17:06)
[2025-01-29] MEDS: POTASSIUM CHLORIDE / WTR 10 MEQ/100 ML PLCT IV SCH (17:06)
[2025-01-29] MEDS: LIDOCAINE 5% 1 PATCH TD STA (17:07)
[2025-01-29] MEDS: REMOVE LIDODERM PATCH SCH (18:13)
[2025-01-29] MEDS: CLINDAMYCIN/D5W 900 MG/50 ML BAG IV SCH (18:14)
[2025-01-29] MEDS ORDERED: Ativan PO Alcohol Withdrawal--Active Protocol PO PRN (18:54)
[2025-01-29] MEDS ORDERED: LORazepam 1 MG TAB PO PRN ×3 (18:54)
[2025-01-29 19:19] LABS: Appearance Urine Clear (Clear); Bacteria Urine Automated None Seen (None Seen); Cast Urine Automated 0-2 /lpf (0-2); Glucose Urine UA Negative (Negative); RBC Urine Automated 0-2 /hpf (0-2); WBC Urine Automated 0-5 /hpf (0-5)
[2025-01-29] MEDS: FOLIC ACID 1 MG TAB PO SCH (20:14)
[2025-01-29] MEDS: MULTIVITAMIN TAB PO SCH (20:14)
[2025-01-29] MEDS: KETOROLAC 30 MG/ML VIAL IV PRN (20:18)
--- NOTE | 2025-01-29 21:55 | Magnetic Resonance Report ---
EXAM: MR elbow LT wo con CLINICAL HISTORY: R/O osteomyelitis, necrotizing fasciitis TECHNIQUE: Multiplanar multisequence MR imaging of the left elbow was acquired without contrast. Images were referred for interpretation. The patient did not complete the procedure(limited study). COMPARISON: dated 01/28/2025. FINDINGS: Bones: Normal alignment of the humerus, radius, and ulna. No fractures, dislocations, or bone marrow edema. Joints: Mild left radiocapitellar and humeroulnar synovial effusion. Normal joint space without significant narrowing. Unremarkable radiocapitellar articulation. Unremarkable humeroulnar articulation. Normal articular cartilage. Compartmental Ligaments and tendons: The lateral compartment, lateral epicondyle, common extensor tendon, and radial collateral ligament are unremarkable. The medial compartment shows signal alteration at the common flexor tendon and ulnar collateral ligament, suggesting medial epicondylitis (golfer's elbow). The posterior compartment is unremarkable. Nerves: Normal appearance and course of the median, ulnar, and radial nerves. No evidence of nerve compression or abnormal signal changes. Soft Tissues: Extensive soft tissue edema is seen at the distal arm around the left elbow and proximal forearm. Most appreciated at the posterior aspect. Findings suggest posttraumatic contusion, soft tissue cellulitis vs necrotizing fasciitis. Strict follow-up and contrast-enhanced MRI study are recommended. IMPRESSION: 1. Extensive soft tissue edema is seen at the distal arm around the left elbow and proximal forearm. Most appreciated at the posterior aspect. Findings suggest posttraumatic contusion, soft tissue cellulitis vs necrotizing fasciitis. Strict follow-up and contrast-enhanced MRI study are recommended. (Acute). 2. Mild left radiocapitellar and humeroulnar synovial effusion. (Indeterminate). 3. 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 4. The current findings explain the current clinical status. 5. The comparison matches the radiographic findings. Electronically signed by Fermin Appiah 01-29-2025 9:54 PM
[2025-01-29] MEDS: MEROPENEM 500 MG in SYRINGE 0 ML IV SCH (22:22)
[2025-01-29] MEDS: VANCOMYCIN HCL 2,000 MG in SODIUM CHLORIDE 0.9% 500 ML IV SCH (22:25)
[2025-01-30] MEDS: MELATONIN 3 MG TAB PO SCH (01:01)
[2025-01-30 06:01] LABS: Hematocrit (blood only) 34.2 % (42.0-52.0); Hemoglobin 12.2 g/dl (14.0-18.0); Immature Granulocytes # (auto) 0.14 K/uL (0.01-0.20); Immature Granulocytes % (auto) 1.5 %; Mean Corpuscular Hemoglobin 34.5 pg (25.0-34.0); Mean Corpuscular Volume 96.6 fL (80.0-100.0); Platelet Count 141 K/uL (130-400); RDW Standard Deviation 47.0 fL (36.4-46.3); Red Blood Count 3.54 M/uL (4.70-6.10); White Blood Count 9.19 K/ul (4.8-10.8)
[2025-01-30 06:17] LABS: Alanine Aminotransferase 43.0 U/L (7-52); Albumin Globulin Ratio 0.9 (0.9-2); Alkaline Phosphatase 86.0 U/L (34-104); Anion Gap 11.0 (3-11); Bilirubin,Total 2.5 mg/dl (0.2-1.0); Blood Urea Nitrogen 18.0 mg/dl (6-23); Calcium 9.0 mg/dl (8.6-10.3); Carbon Dioxide 22.0 mmol/L (21-32); Chloride 100.0 mmol/L (98-107); Creatinine Clr Calc Pharmacy 194.7 ml/min; Globulin 3.7 gm/dl (2.5-4.0); Glucose 106.0 mg/dl (70-99(Fasting)); Potassium 3.3 mmol/L (3.5-5.1); Sodium 133.0 mmol/L (136-145); Total Protein 7.2 gm/dl (6.0-8.3)
--- NOTE | 2025-01-30 07:41 | Pharmacy Report ---
Pharmacy PK ABX Note - Date of Service January 30, 2025 - Assessment and Plan Laboratory Tests 01/29/25 01/29/25 01/30/25 12:40 12:40 05:41 WBC 14.46 H 9.19 Procalcitonin 2.93 H 01/30/25 05:41 WBC Procalcitonin Pending Assessment 34 year old M receiving IV Vancomycin + Clindamycin + Meropenem for treatment of acute left olecranon cellulitis with group A beta hemolytic Streptococcus pyogenes, R/O streptococcal osteomyelitis of left olecranon, streptococcal bacteremia, and invasive streptococcal necrotizing fasciitis. Pertinent microbiologic data includes: group A beta hemolytic Streptococcus pyogenes (01/28/2025, left elbow I & D culture) Blood & Urine cultures pending Patient started on PO Bactrim + Augmentin on 01/28 prior to returning to [facility] for worsening cellulitis. WBC down to normal range today; afebrile. Procal elevated yesterday, pending today. Day # 2 of inpatient IV antimicrobial therapy. Plan Vancomycin * Loading dose: 2000 mg IV x 1 * Maintenance dose: 2000 mg IV every 12 hours * Regimen is predicted to achieve target AUC/RAMIRO of 400-600 mg/L.hr * Random level ordered for: 01/31/25 Clindamycin 900mg IV Q8H Meropenem 500mg IV Q6H Pharmacy will continue to follow and will adjust dose/frequency as necessary. Thank you. Pharmacy has transitioned to AUC monitoring for vancomycin. AUC/RAMIRO is the preferred PK/PD target and is associated with decreased risk of nephrotoxicity compared to traditional trough targets.
[2025-01-30] MEDS: LIDOCAINE 5% 1 PATCH TD SCH (08:37)
[2025-01-30] MEDS: THIAMINE HCL 100 MG TAB PO SCH (08:37)
[2025-01-30] MEDS: POTASSIUM CHLORIDE CRTAB 20 MEQ TABCR PO SCH (09:44)
--- NOTE | 2025-01-30 09:55 | Orthopedic Consultation ---
Date of Service January 30, 2025 Assessment & Plan (1) Cellulitis of arm, left: * Case/imaging and labs reviewed and discussed with Dr James * Exam and imaging findings consistent with superficial cellulitis of the elbow region. No deep abscess/collection noted on MRI * No indication for further surgical debridement at this time * Continue IV antibiotics * Packing changed today, recommend daily packing changes and dressings as needed * Disposition: TBD * Daily treatment: Physical Therapy/ Occupational Therapy per protocol * Weight bearing status: WBAT * Pain control * Remainder care per primary team * Will continue to follow History of Present Illness Reason for Consultation: . Left elbow pain Requesting Physician: . Attending Physician: Mynor Renteria MD . Patient0 is a 34y/o male, with left elbow pain. PMH including EtOH abuse, MARISSA, HTN, hypothyroid. Presents to hospital with ongoing left elbow pain. Patient has had worsening left elbow pain over the past few days, first noticed over the weekend when he developed a small pustule over the tip of the elbow which opened Tuesday began draining, presented to ED Tuesday where bedside I&D was performed and patient was discharged oral antibiotics. However since that time pain, redness, drainage have persisted and he presented to the ED yesterday afternoon for further evaluation. Current workup including MRI of the left elbow demonstrating superficial cellulitis, no discrete abscess, wound culture from bedside I&D growing strep pyogenes. Admitted to hospital medicine team for IV antibiotics. Orthopedics consulted for management recommendations. At time of exam patient lying comfortably in bed, no acute distress. Endorses constant moderate pain of the left elbow and forearm secondary to soft tissue swelling. Active motion of the elbow does not significantly increase pain. Has not changed packing since initial I&D 2 days ago. Notes widespread redness from the upper arm across posterior elbow and distally through forearm. Currently WBC 9 down from 14 yesterday, ESR 105, C-RP 22. Allergies Allergy/AdvReac Type Severity Reaction Status Date / Time No Known Allergies Allergy Verified 01/14/21 14:29 Home Medications Medication Instructions Recorded Confirmed Type amlodipine 5 mg tablet (Norvasc) 5 mg PO DAILY #30 tabs 01/26/25 01/29/25 Rx pantoprazole 40 mg tablet,delayed 40 mg PO DAILY #30 tabs 01/26/25 01/29/25 Rx release (Protonix) Auto Titrating CPAP 01/28/25 01/28/25 History amoxicillin 875 mg-potassium 1 tab PO BID 10 days #20 tabs 01/28/25 01/29/25 Rx clavulanate 125 mg tablet naproxen 500 mg tablet 500 mg PO BID PRN pain #20 tabs 01/28/25 01/29/25 Rx sulfamethoxazole 800 1 tab PO Q12H 10 days #20 tabs 01/28/25 01/29/25 Rx mg-trimethoprim 160 mg tablet (Bactrim DS) Past Med/Surg History Problem List (Updated 01/29/25 @ 18:00 by Avni Varghese MD, PhD) ETOH abuse MARISSA (obstructive sleep apnea) Demand ischemia Hyperbilirubinemia Transaminitis Hypomagnesemia Hypercalcemia Acute hypokalemia Acute hyponatremia Severe sepsis Elevated troponin I level (Acute) Cellulitis of arm, left (Acute) Abscess of left olecranon bursa (Acute) Hypertension (Acute) Chest pain (Acute) Sleep apnea Hypothyroidism Vitamin D deficiency Elevated triglycerides with high cholesterol Elevated liver function tests Healthcare maintenance Snoring Medical History No pertinent past medical history Surgical History H/O shoulder surgery Family History Aunt Colorectal cancer Uncle Colorectal cancer Grandfather (Paternal) Myocardial infarction Denies family history of Ovarian cancer Prostate cancer Breast cancer Social History Smoking Status: Former smoker Tobacco Type: Cigarettes Second Hand Exposure: No; Do You Dip or Chew Tobacco: No; Tobacco Cessation Education Requested by Patient: No Hx Alcohol Use: Yes Alcohol type: hard liquor Hx Substance Use: No Preferred Language: Faroese Communication Ability: Effective Visual Impairment: No Limitations Hearing Ability: Normal Cto Required: No Beliefs That Will Affect Care: None marital status: Life Partner Current Living Situation: Family current occupational status: unemployed Other Information That Helps Us Care for You: No Feels Safe at Home: Yes Safety Concerns: Feels Safe At This Time Childhood Exposure to Second-Hand Smoke: Yes Dental Care, Regularly: Yes Physical Activity Frequency: Does not Exercise Seatbelt Use: always Assistive Devices: None Review of Systems All systems reviewed & are unremarkable except as noted in HPI & below. Physical Exam . * General: Alert and oriented, no acute distress * Constitutional: well-developed, well-nourished. * Respiratory: Normal respiratory effort, no distress * Gastrointestinal: No tenderness to palpation, no rigidity or guarding. * Skin: No rash or lesion. * Neurologic: Grossly normal * Musculoskeletal: Left elbow with widespread erythema from proximal upper arm, posteriorly across olecranon, distally through forearm. Moderate soft tissue edema throughout forearm stab incision over olecranon with packing in place, scant serous drainage, no purulence appreciated. Mild TTP of the posterior elbow/olecranon region, also diffusely throughout forearm secondary to edema. AROM elbow flexion 0-120 degrees without significant pain. AROM wrist flexion/extension, finger motions intact. Sensation intact radial/median/ulnar nerve distributions. Brisk capillary refill. Results & Data Results & Data Laboratory Results . 01/29/25 18:47 Urine Culture - Pending Urine,Clean Catch 01/29/25 12:53 Aerobic Blood Culture - Pending Blood Anaerobic Blood Culture - Pending 01/29/25 12:40 Aerobic Blood Culture - Pending Blood Anaerobic Blood Culture - Pending 01/30/25 01/29/25 01/29/25 05:41 18:58 18:47 WBC 9.19 RBC 3.54 L Hgb 12.2 L Hct 34.2 L MCV 96.6 MCH 34.5 H MCHC 35.7 RDW Std Deviation 47.0 H RDW Coeff of Jc 13.1 Plt Count 141 MPV 10.7 Immature Gran % (Auto) 1.5 Neut % (Auto) 83.5 Lymph % (Auto) 10.2 Moca % (Auto) 3.6 Eos % (Auto) 0.8 Baso % (Auto) 0.4 Neut # (Auto) 7.67 H Lymph # (Auto) 0.94 L Moca # (Auto) 0.33 Eos # (Auto) 0.07 Baso # (Auto) 0.04 Immature Gran # (Auto) 0.14 Toxic Granulation Toxic Vacuolation Polychromasia Tear Drop Cells ESR 105 H Sodium 133 L Potassium 3.3 L Chloride 100 Carbon Dioxide 22 Anion Gap 11 BUN 18 Creatinine 0.71 Est Cr Clr Drug Dosing 194.7 eGFR 124.24 BUN/Creatinine Ratio 25.4 H Glucose 106 H Lactate 1.3 1.9 Calcium 9.0 Magnesium Total Bilirubin 2.5 H Direct Bilirubin AST 57 H ALT 43 Alkaline Phosphatase 86 Troponin I High Sens C-Reactive Protein 22.55 H Total Protein 7.2 Albumin 3.5 Globulin 3.7 Albumin/Globulin Ratio 0.9 Procalcitonin Urine Color Dark Yellow Urine Appearance Clear Urine pH 7.0 Ur Specific [place] 1.028 Urine Protein 1+ H Urine Glucose (UA) Negative Urine Ketones Trace H Urine Blood Negative Urine Nitrite Positive A Urine Bilirubin 2+ H Urine Urobilinogen Positive H Ur Leukocyte Esterase 1+ H Urine WBC (Auto) 0-5 Urine RBC (Auto) 0-2 U Hyaline Cast (Auto) 0-2 U Epithel Cells (Auto) 3-5 H Urine Bacteria (Auto) None Seen Granular Casts Present A Urine Comment 01/29/25 01/29/25 14:49 12:40 WBC 14.46 H RBC 4.27 L Hgb 14.4 Hct 40.7 L MCV 95.3 MCH 33.7 MCHC 35.4 RDW Std Deviation 47.3 H RDW Coeff of Jc 13.6 Plt Count 146 MPV 11.1 Immature Gran % (Auto) 4.4 Neut % (Auto) 81.9 Lymph % (Auto) 8.0 Moca % (Auto) 5.0 Eos % (Auto) 0.2 Baso % (Auto) 0.5 Neut # (Auto) 11.85 H Lymph # (Auto) 1.15 L Moca # (Auto) 0.72 H Eos # (Auto) 0.03 Baso # (Auto) 0.07 Immature Gran # (Auto) 0.64 H Toxic Granulation 1+ Toxic Vacuolation 1+ Polychromasia 1+ Tear Drop Cells 1+ ESR 98 H Sodium 133 L Potassium 3.4 L Chloride 95 L Carbon Dioxide 26 Anion Gap 12 H BUN 18 Creatinine 0.78 Est Cr Clr Drug Dosing 177.2 eGFR 120.76 BUN/Creatinine Ratio 23.1 H Glucose 131 H Lactate 1.8 Calcium 10.5 H Magnesium 0.9 L* Total Bilirubin 2.7 H Direct Bilirubin 1.6 H AST 65 H ALT 49 Alkaline Phosphatase 95 Troponin I High Sens 40.7 H 42.7 H C-Reactive Protein 22.26 H Total Protein 8.2 Albumin 4.2 Globulin Albumin/Globulin Ratio Procalcitonin 2.93 H Urine Color Urine Appearance Urine pH Ur Specific [place] Urine Protein Urine Glucose (UA) Urine Ketones Urine Blood Urine Nitrite Urine Bilirubin Urine Urobilinogen Ur Leukocyte Esterase Urine WBC (Auto) Urine RBC (Auto) U Hyaline Cast (Auto) U Epithel Cells (Auto) Urine Bacteria (Auto) Granular Casts Urine Comment Diagnostic Findings . Chest X-Ray 01/29/25 12:37 XR chest 1V portable HISTORY: 34 years-old Male Sepsis acute sepsis COMPARISON: Chest radiograph and CTA chest January 26, 2025 TECHNIQUE: AP view of the chest FINDINGS: Cardiac silhouette is upper limits of normal in size. No pneumothorax, pleural effusion, airspace consolidation or pulmonary edema. Bones appear grossly intact. IMPRESSION: No acute process. ACT 112: Negative or not required by law. The above report was generated using voice recognition software. It may contain grammatical, syntax or spelling errors. Electronically signed by: Quinn Lima M.D. 01/29/2025 1:19 PM Elbow MRI 01/29/25 17:37 EXAM: MR elbow LT wo con CLINICAL HISTORY: R/O osteomyelitis, necrotizing fasciitis TECHNIQUE: Multiplanar multisequence MR imaging of the left elbow was acquired without contrast. Images were referred for interpretation. The patient did not complete the procedure(limited study). COMPARISON: CR dated 01/28/2025. FINDINGS: Bones: Normal alignment of the humerus, radius, and ulna. No fractures, dislocations, or bone marrow edema. Joints: Mild left radiocapitellar and humeroulnar synovial effusion. Normal joint space without significant narrowing. Unremarkable radiocapitellar articulation. Unremarkable humeroulnar articulation. Normal articular cartilage. Compartmental Ligaments and tendons: The lateral compartment, lateral epicondyle, common extensor tendon, and radial collateral ligament are unremarkable. The medial compartment shows signal alteration at the common flexor tendon and ulnar collateral ligament, suggesting medial epicondylitis (golfer's elbow). The posterior compartment is unremarkable. Nerves: Normal appearance and course of the median, ulnar, and radial nerves. No evidence of nerve compression or abnormal signal changes. Soft Tissues: Extensive soft tissue edema is seen at the distal arm around the left elbow and proximal forearm. Most appreciated at the posterior aspect. Findings suggest posttraumatic contusion, soft tissue cellulitis vs necrotizing fasciitis. Strict follow-up and contrast-enhanced MRI study are recommended. IMPRESSION: 1. Extensive soft tissue edema is seen at the distal arm around the left elbow and proximal forearm. Most appreciated at the posterior aspect. Findings suggest posttraumatic contusion, soft tissue cellulitis vs necrotizing fasciitis. Strict follow-up and contrast-enhanced MRI study are recommended. (Acute). 2. Mild left radiocapitellar and humeroulnar synovial effusion. (Indeterminate). 3. 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 4. The current findings explain the current clinical status. 5. The comparison matches the radiographic findings. Electronically signed by Fermin Appiah 01-29-2025 9:54 PM PG Care Time/CCT Total # of Minutes Spent Total Time Spent with Patient: Total time spent is greater than 50% in coordination of care (as documented) at patient's floor/unit and/or counseling patient: [place] [address] IN/OBS CONSULT LVL 4,60M Patient Type New History Problem Focused Exam Problem Focused Diagnoses Cellulitis of arm, left L03.114
[2025-01-30 10:04] LABS: Magnesium 1.7 mg/dl (1.7-2.4)
[2025-01-30] MEDS: LACTOBACILLUS ACIDOPHILUS 1 GM PACK PO SCH (11:56)
[2025-01-30] MEDS ORDERED: cefTRIAXone SODIUM 2,000 MG/50 ML BAG IV SCH (13:00)
--- NOTE | 2025-01-30 14:17 | Hospitalist Progress Note ---
Date of Service January 30, 2025 Assessment & Plan (1) Severe sepsis: Plan: Present on admission. Now resolved. Blood cultures are negative (2) Cellulitis of arm, left: Plan: Strep pyogenes isolated from cultures obtained during bedside I&D upon admission. Meropenem has been discontinued. He remains on intravenous clindamycin and vancomycin, day 2. Appreciate orthopedic consultation recommendations. Improving (3) Acute hyponatremia: Plan: Mild on admission. Improved (4) Acute hypokalemia: Plan: Oral replacement ordered. Serial labs (5) Hypercalcemia: Plan: Mild on admission. No intervention needed. Will follow (6) Hypomagnesemia: Plan: Corrected with parenteral replacement. Serial labs (7) Transaminitis: Plan: Mild on admission. Probably from excessive alcohol intake. (8) Hyperbilirubinemia: Plan: Mild on admission. Probably from excessive alcohol intake. (9) Demand ischemia: Plan: Troponin minimally elevated. No chest pain. No acute EKG changes. No evidence of acute coronary syndrome. (10) MARISSA (obstructive sleep apnea): Plan: Non-compliant with CPAP at home. Observe as patient reports no daytime somnolence. (11) ETOH abuse: Plan: Alcohol intake cessation highly recommended. No signs of acute ETOH withdrawal on 01/29/2025 admission date. Plan Hopeful discharge to home on oral antibiotic within the next day or 2 Admission and Anticipated Discharge Date Admission Date: January 29, 2025 Subjective Alert and oriented. No distress. Improved since admission. He had bedside I&D performed on the left elbow by orthopedic surgery on admission. Strep pyogenes isolated. Blood cultures are negative. Meropenem has been discontinued. He remains on clindamycin and vancomycin for now. Oral potassium replacement started. Magnesium level has been corrected to 1.7. Hopefully he can go home on oral antibiotics within the next day or 2 Review of Systems 2 Review of Systems: Constitutionalno fever or chills ENTno blurred vision, no double vision, no epistaxis, no sore throat Respiratoryno cough, no wheezing, no shortness of breath Cardiacno palpitations, no chest pain, no syncope Saulo nausea, vomiting, diarrhea, melena, hematochezia GUno urinary retention, no urinary incontinence, no dysuria, no hematuria Musculoskeletalleft elbow discomfort has lessened. No muscle tenderness Skinno bruising, no rashes, no pruritus Neurono isolated weakness, no paresthesia, no weakness Psychno depression, no anxiety Physical Exam 2 Physical Exam: General-alert and oriented x3, no fever, no chills HEENT-head atraumatic and normocephalic, pupils equal and reactive to light, extraocular muscles intact Neck-no lymphadenopathy or thyromegaly, trachea midline Chest-clear to auscultation. No rales, wheezing or rhonchi Cardiac-regular rate and rhythm, normal S1 and S2 Abdomen-normal bowel sounds, no hepatosplenomegaly Extremities-no cyanosis, clubbing, or edema. Left arm swelling and tenderness extending above and below the left elbow. Packing in place in the left elbow I&D area Neuro-cranial nerves II through XII intact, motor and sensory function within normal limits, strength symmetrical, no focal deficits Psych-normal affect, normal mood Results & Data Results & Data Vital Signs (Past 12 Hours) Vital Signs Temp Pulse Pulse Resp BP Pulse Ox O2 Del Method 01/30/25 11:22 36.9 C 102 H 18 131/81 96 Room Air 01/30/25 07:04 37.1 C 103 H 18 126/86 96 Room Air 01/30/25 03:10 37.1 C 97 H 18 124/78 97 Room Air Laboratory Results 01/30/25 05:41 01/30/25 05:41 PG Care Time/CCT Total # of Minutes Spent Total Time Spent with Patient: Total time spent is greater than 50% in coordination of care (as documented) at patient's floor/unit and/or counseling patient: Coding Level of Care Code 08630 SUB INP/OBS CARE 3/50MIN Diagnoses Severe sepsis A41.9; R65.20 Cellulitis of arm, left L03.114 Acute hyponatremia E87.1 Acute hypokalemia E87.6 Hypercalcemia E83.52 Hypomagnesemia E83.42 Transaminitis R74.01 Hyperbilirubinemia E80.6 Demand ischemia I24.89 MARISSA (obstructive sleep apnea) G47.33 ETOH abuse F10.10
[2025-01-30] MEDS: ACETAMINOPHEN 1,000 MG/100 ML VIAL IV PRN (18:39)
[2025-01-31 06:40] LABS: Hematocrit (blood only) 34.2 % (42.0-52.0); Hemoglobin 12.2 g/dl (14.0-18.0); Immature Granulocytes # (auto) 0.23 K/uL (0.01-0.20); Immature Granulocytes % (auto) 2.5 %; Mean Corpuscular Hemoglobin 35.0 pg (25.0-34.0); Mean Corpuscular Volume 98.0 fL (80.0-100.0); Platelet Count 159 K/uL (130-400); RDW Standard Deviation 48.0 fL (36.4-46.3); Red Blood Count 3.49 M/uL (4.70-6.10); White Blood Count 9.06 K/ul (4.8-10.8)
[2025-01-31 07:01] LABS: Anion Gap 9.0 (3-11); Blood Urea Nitrogen 16.0 mg/dl (6-23); Calcium 9.1 mg/dl (8.6-10.3); Carbon Dioxide 24.0 mmol/L (21-32); Chloride 101.0 mmol/L (98-107); Creatinine Clr Calc Pharmacy 203.2 ml/min; Glucose 96.0 mg/dl (70-99(Fasting)); Potassium 3.4 mmol/L (3.5-5.1); Sodium 134.0 mmol/L (136-145)
[2025-01-31] MEDS: VANCOMYCIN LEVEL ONE (07:32)
[2025-01-31 07:50] VITALS: BP 132/87; PULSE 92; RESP 18; TEMP 97.3; O2SAT 95
[2025-01-31] MEDS: VANCOMYCIN HCL 1,750 MG in SODIUM CHLORIDE 0.9% 500 ML IV SCH (08:49)
--- NOTE | 2025-01-31 08:56 | Orthopedic Progress Note ---
Date of Service January 31, 2025 Assessment & Plan (1) Cellulitis of arm, left: * Continue Current Treatment * Continue antibiotics, daily dressing changes * Packing removed today, did not replace * No indication for for further orthopedic procedure at this time * Disposition: TBD * Daily treatment: Physical Therapy/ Occupational Therapy per protocol * Weight bearing status: As tolerated * Continue to monitor for ABLA * Pain control * Will continue to monitor during hospitalization Subjective .Active Problems: Left elbow cellulitis 34y/o male with left elbow cellulitis, s/p bedside I&D in ED. Doing well overall, pain managed and improved function. Remains stiff/swollen throughout the forearm however improved erythema overnight. Denies fever/chills, chest pain/SOB, nausea/vomiting. Otherwise no complaints. Review of Systems All systems reviewed & are unremarkable except as noted in HPI & below. Physical Exam * General: Alert and oriented, no acute distress * Constitutional: well-developed, well-nourished. * Respiratory: Normal respiratory effort, no distress * Gastrointestinal: No tenderness to palpation, no rigidity or guarding. * Skin: No rash or lesion. * Neurologic: Grossly normal * Musculoskeletal: Left elbow with widespread erythema from proximal upper arm, posteriorly across olecranon, distally through forearm. This is markedly improved from yesterday. Moderate soft tissue edema throughout forearm. Stab incision over olecranon with packing in place, scant serous drainage, no purulence noted. Minimal TTP of the posterior elbow/olecranon region, also diffusely throughout forearm secondary to edema. AROM elbow flexion 0-120 degrees without significant pain. AROM wrist flexion/extension, finger motions intact. Sensation intact radial/median/ulnar nerve distributions. Brisk capillary refill. Results & Data Results & Data Laboratory Results . Diagnostic Findings . PG Care Time/CCT Total # of Minutes Spent Total Time Spent with Patient: Total time spent is greater than 50% in coordination of care (as documented) at patient's floor/unit and/or counseling patient: Coding [place] [address] SUB INP/OBS CARE 1/25MIN Patient Type Established History Problem Focused Exam Problem Focused Medical Decision Making Straight Forward Diagnoses Cellulitis of arm, left L03.114
--- NOTE | 2025-01-31 10:33 | Discharge Summary ---
Discharge Summary Date of Service January 31, 2025 Principal Dx & Hospital Course #1 = Principal Diagnosis (1) Severe sepsis: Present on admission. Now resolved. Blood cultures are negative (2) Cellulitis of arm, left: Strep pyogenes isolated from cultures obtained during bedside I&D upon admission. Meropenem has been discontinued. He continued treatment while hospitalized with intravenous clindamycin and vancomycin. He will be discharged home on Augmentin 875 mg twice daily for 10 more days. Appreciate orthopedic consultation recommendations. He will follow-up with orthopedics within 1 week. Improved (3) Acute hyponatremia: Mild on admission. Resolved (4) Acute hypokalemia: Oral replacement ordered. Serial labs. Improving. He will continue oral potassium at discharge (5) Hypercalcemia: Mild on admission. No intervention needed. Will follow (6) Hypomagnesemia: Corrected with parenteral replacement. Serial labs (7) Transaminitis: Mild on admission. Probably from excessive alcohol intake. (8) Hyperbilirubinemia: Mild on admission. Probably from excessive alcohol intake. (9) Demand ischemia: Troponin minimally elevated. No chest pain. No acute EKG changes. No evidence of acute coronary syndrome. (10) MARISSA (obstructive sleep apnea): Non-compliant with CPAP at home. Observe as patient reports no daytime somnolence. (11) ETOH abuse: Alcohol intake cessation highly recommended. No signs of acute ETOH withdrawal on 01/29/2025 admission date. Plan Home today, January 31, on Augmentin. Follow-up with orthopedic surgery as soon as possible. Admission HPI Per Admitting Provider 34 years old male with PMH of FULL CODE @ home, obesity with BMI 34.7 (height 182.9 cm, weight 116.1 kg), former tobacco abuse (cf., patient reports having quit smoking tobacco 2 days ago; previously, patient conceded to smoking 10 cigarettes per day for 7 years) with no subsequent diagnosis of COPD, not on home O2 or home steroids, former ETOH abuse (cf., patient reports having quit drinking 2 days ago; previously, patient conceded to quafffing 1 gallon of vodka per day for 10 years) with no subsequent diagnosis of alcoholic hepatitis or alcoholic cirrhosis, but nominal elevation in AST with baseline range of 123 U/L (07/21/2020, 12:53pm) to 53 U/L (01/28/2025, 4:20pm), former opiate abuse (cf., patient reports having quit abusing oxycodone several years ago; previously, patient conceded to using several oxycodone tablets a day for 10 years) with no subsequent maintenance regimen of methadone, MARISSA non-compliant with CPAP, HTN on amlodipine 5mg PO daily, GERD on protonix 40mg PO daily, who reports: "On Tuesday morning (01/26/2025, 11:00am), I saw a scratch on my left elbow. It did not bleed or itch. I did not have a bug bite there. I didn't fall down or bump into something or anything. I don't know how it got there." "On Tuesday morning (01/27/2025, 9:00am), my left elbow was the size of a baseball. It was red and warm and hurt a little." "On Tuesday evening (01/27/2025, 9:00pm), I started sweating a lot. All night long. And on and on through Tuesday (01/28/2025) and Tuesday (01/29/2025) constant sweating, but no fever or chills. The pain in my left elbow was a lot now, like a 10 (out of 10 point intensity scale) constant pain, and I have not been able to sleep since Tuesday evening (01/27/2025, 9:00pm). "On Tuesday afternoon (01/28/2025, 3:30pm), my left elbow and forearm were really swollen, so I came to [facility] ER, and the ER doctor drained a lot of pus (cf., 01/28/2025, 5:15pm left elbow wound culture demonstrates on 01/29/2025, 9:43am the presence of group A beta hemolytic Streptococcus pyogenes ) and said that I could go home with augmentin 875/125mg PO bid and bactrim DS 800/160mg PO bid, so I went home on Tuesday evening (01/28/2025, 8:15pm), and I took 2 tablets each of the augmentin and the bactrim, but they did not help at all. The swelling got worse and the redness went way past the line the ER doctor sandy on my left elbow and forearm, so I came back to [facility] ER this afternoon (01/29/2025, 12:15pm)." "The ER doctor said I am septic from the infection in my left elbow and that I have to stay to get IV antibiotics now. The pain is still a constant 10 (out of 10 point intensity scale), but I do NOT want to get any narcotics because I have had problems with narcotics in the past and I don't want to get hooked on narcotics. Tylenol IV and toradol IV are fine with me." Patient denies antecedent/coincident fevers, chills, cough, wheeze, sore throat, hemoptysis, shortness of breath, dyspnea on exertion, chest pains, palpitations, pleurisy, nausea, vomiting, diarrhea, abdominal pain, pelvic pain, hematemesis, hematochezia, melena, hematuria, dysuria, frequency, urgency, headaches, dizziness, lightheadedness, visual changes, hearing changes, weakness, falls, syncope, trauma, travel history, sick contacts, or food/drug ingestions novel or new. All other review of systems are reported as negative by the patient on 01/29/2025. In [facility] ER, patient was afebrile @ 36.8 degrees Celsius, HR 122, RR 18, O2 sat 96% on room air, and BP 125/82 (01/29/2025, 12:28pm). cf., repeat RR 21 (01/29/2025, 12:37pm). Exam was noted for a left olecranon bursa that was edematous and fluctuant with thick white purulent discharge from incision site (01/28/2025, 5:15pm, [facility] ER). Exquisite tenderness @ left olecranon with induration, warmth, and circumferential, bright erythema extending far beyond the demarcation lines drawn on 01/28/2025, 5:15pm, [facility] ER), to involve the volar aspect of patient's left forearm, but sparing the left wrist, left hand, and left fingers #1 through #5 completely as of 01/29/2025, 3:04pm, and patient demonstrating the ability to clench the left hand tightly into a fist, but being unable to pronate or supinate the left forearm at all due to sharp pain(s) @ left olecranon when pronating or supinating the left forearm. Of note, there was no malodor, no ulceration, no lymphangitic streaking, no excoriation, and no lichenification associated with this exanthem. In addition, patient reported some "fullness" in the left ear, but otoscopic exam of both left ear and right ear revealed no tenderness of the auditory canals; complete translucency of bilateral tympanic membranes, both of which remained intact/preserved without perforation; absence of hyperemia of the auditory canals and tympanic membranes; and absence of effusion posterior to either tympanic membranes. In addition, patient reported no tenderness on tugging of the tragus/auricle bilaterally and no tenderness on deep palpation of the mastoid bone bilaterally. Labs in [facility] ER included: WBC 14.46, N82 L8 M5 B1, toxic granulation 1+, toxic vacuolation 1+, polychromasia 1+, and tear drop cells 1+, Hb 14.4, MCV 95.3, MCHC 35.4, platelet 146 (01/29/2025, 12:40pm). CRP 22.26 mg/dL (01/29/2025, 2:49pm). ESR 98 mm/hr (01/29/2025, 12:40pm). Procalcitonin #1 2.93 ng/mL (01/29/2025, 12:40pm). Lactic acid #1 1.8 mmol/L (01/29/2025, 12:40pm). Lactic acid #2 (01/29/2025, 4:40pm). Blood culture #3 (01/29/2025, 12:40pm): Blood culture #4 (01/29/2025, 12:53pm): U/A (01/29/2025, 12:37pm): U/A (01/29/2025, 5:25pm): Na 133, K 3.4, BUN 18, creatinine 0.78, glucose 131, Ca 10.5, Mg 0.9, AST 65, ALT 49, ALK PHOS 95, TBili 2.7, DBili 1.6 (01/29/2025, 12:40pm). Troponin-I #1 42.7 pg/mL (01/29/2025, 12:40pm). Troponin-I #2 40.7 pg/mL (01/29/2025, 2:49pm). Additional testing in [facility] ER included: Portable CXR (01/29/2025, 12:37pm): No infiltrate, effusion, cardiomegaly, pulmonary vascular congestion, or pneumothorax (by my review). EKG (01/29/2025, 12:48pm): sinus tach @ 115, DE 146, QTC 445, LAE in II, no acute ST depressions/elevations, TWI, or q waves (by my review). Historical testing in [facility] ER included: Blood culture #1 (01/28/2025, 4:20pm): Blood culture #2 (01/28/2025, 6:42pm): Left elbow I & D culture (01/28/2025, 5:15pm): group A beta hemolytic Streptococcus pyogenes Left elbow x-ray (01/28/2025, 5:15pm): 1. No fracture or dislocation is seen. 2. No significant arthritic changes are noted. 3. No other osseous abnormality is identified. 4. No radiopaque foreign bodies. D-dimer 510 ug/L (01/26/2025, 10:56am). CTA chest (01/26/2025, 12:01pm): No PE. CT abd/pelvis with IV contrast (01/26/2025, 12:01pm): No acute intra-abdominal or intra-pelvic pathology. EKG (01/26/2025, 10:41am): NSR @ 97, DE 144, QTC 472, LAE in II, no acute ST depressions/elevations, TWI, or q waves (by my review). Patient was subsequently admitted to the inpatient hospitalist service @ [facility] on 01/29/2025 with the following diagnoses: 1. Severe sepsis, not yet septic shock, due to acute left olecranon cellulitis with group A beta hemolytic Streptococcus pyogenes (as noted on 01/28/2025, 5:15pm left elbow I & D culture), R/O streptococcal osteomyelitis of left olecranon, R/O streptococcal bacteremia, R/O invasive streptococcal necrotizing fasciitis. 2. Acute hypovolemic hyponatremia with admission Na 133 mmol/L (01/29/2025, 12:40pm). 3. Acute hypokalemia with admission K 3.4 mmol/L (01/29/2025, 12:40pm). 4. Acute hypercalcemia with admission Ca 10.5 mg/dL (01/29/2025, 12:40pm). 5. Acute hypomagnesemia with admission Mg 0.9 mg/dL (01/29/2025, 12:40pm). 6. Chronic transaminitis with admission AST 65 U/L (01/29/2025, 12:40pm). 7. Acute hyperbilirubinemia with admission TBili 2.7 mg/dL, DBili 1.6 mg/dL (01/29/2025, 12:40pm). 8. Acute type II NSTEMI with troponin-I #1 42.7 pg/mL (01/29/2025, 12:40pm), troponin-I #2 40.7 pg/mL (01/29/2025, 2:49pm), due to demand ischemia, due to severe sepsis, not yet septic shock, due to acute left olecranon cellulitis with group A beta hemolytic Streptococcus pyogenes (as noted on 01/28/2025, 5:15pm left elbow I & D culture), R/O streptococcal osteomyelitis of left olecranon, R/O streptococcal bacteremia, R/O invasive streptococcal necrotizing fasciitis. To address #1, patient received ceftriaxone 2g IV x 1 dose (01/29/2025, 1:10pm) and vancomycin 2g IV x 1 dose (01/29/2025, 2:35pm) in [facility] ER bed #C03. Patient will continue with vancomycin 2g IV q12 (day #07/10 on 01/30/2025, 2:35am), clindamycin 900mg IV q8 (day #1/ on 01/29/2025, 5:15pm), and meropenem 1g IV q8 (day #07/10 on 01/29/2025, 10:00pm) empirically, under the premise that this patient may not only be suffering from streptococcal cellulitis, but may be suffering from concomitant streptococcal osteomyelitis of the left olecranon, streptococcal bacteremia and/or invasive streptococcal necrotizing fasciitis. To this end, I have ordered MRI left elbow with/without IV contrast (01/29/2025, 5:37pm) and I have solicited formal Orthopedic Surgery Service of Dr. Artie Astudillo to evaluate patient for possible invasive streptococcal necrotizing fasciitis. In the interim, I will check repeat vitals, left olecranon/arm exam, WBC w/diff, ESR, CRP, lactic acid, procalcitonin, and Blood culture #1 (01/28/2025, 4:20pm) Blood culture #2 (01/28/2025, 6:42pm) Blood culture #3 (01/29/2025, 12:40pm) Blood culture #4 (01/29/2025, 12:53pm) in the 01/30/2025 am. To address #2, patient received 1 liter of 0.9% NS @ 999 mL/hr (01/29/2025, 1:58pm) and 1 liter of 0.% NS @ 999 mL/hr (01/29/2025, 2:37pm) in [facility] ER bed #C03. I will check repeat Na level in the 01/30/2025 am. Of note, etiology of acute hypovolemic hyponatremia is most probably due to increased insensible losses of sodium due to perspiration and respiration due to severe sepsis, due to acute left olecranon cellulitis with group A beta hemolytic Streptococcus pyogenes (as noted on 01/28/2025, 5:15pm left elbow I & D culture), R/O streptococcal osteomyelitis of left olecranon, R/O streptococcal bacteremia, R/O invasive streptococcal necrotizing fasciitis. To address #3, patient will receive KCl 10mmol IV x 3 doses (starting on , 4:30pm) in [facility] ER bed #C03. I will check repeat K level in the 01/30/2025 am. Of note, etiology of acute hypokalemia is most probably due to chronic ETOH-mediated faraz-uresis. To address #4, patient received 1 liter of 0.9% NS @ 999 mL/hr (01/29/2025, 1:58pm) and 1 liter of 0.% NS @ 999 mL/hr (01/29/2025, 2:37pm) in [facility] ER bed #C03. I will check repeat Ca level in the 01/30/2025 am. Of note, etiology of acute hypercalcemia is most probably due to acute dehydration, which is due, in turn, to increased insensible losses of water due to perspiration and respiration due to severe sepsis, due to acute left olecranon cellulitis with group A beta hemolytic Streptococcus pyogenes (as noted on 01/28/2025, 5:15pm left elbow I & D culture), R/O streptococcal osteomyelitis of left olecranon, R/O streptococcal bacteremia, R/O invasive streptococcal necrotizing fasciitis. To address #5, patient received magnesium sulfate 1g IV x 2 doses (01/29/2025, 2:00pm, 2:53pm), followed by magnesium sulfate 1g IV x 2 doses (01/29/2025, 4:00pm, 5:00pm) in [facility] ER bed #C03. I will check repeat mg level in the 01/30/2025 am. Of note, etiology of acute hypomagnesemia is most probably due to chronic ETOH-mediated magne-uresis. To address #6, patient awaits repeat AST level testing in the 01/30/2025 am. To address #7, patient awaits TBili and DBili testing in the 01/30/2025 am. To address #8, patient is being observed without further evaluation or intervention. Discharge Exam General-alert and oriented x3, no fever, no chills HEENT-head atraumatic and normocephalic, pupils equal and reactive to light, extraocular muscles intact Neck-no lymphadenopathy or thyromegaly, trachea midline Chest-clear to auscultation. No rales, wheezing or rhonchi Cardiac-regular rate and rhythm, normal S1 and S2 Abdomen-normal bowel sounds, no hepatosplenomegaly Extremities-no cyanosis, clubbing, or edema. Left arm swelling and tenderness extending above and below the left elbow is resolving. Packing from left elbow incision and drainage site has been removed. Neuro-cranial nerves II through XII intact, motor and sensory function within normal limits, strength symmetrical, no focal deficits Psych-normal affect, normal mood Discharge Plan Discharge Items Patient Disposition: Home - Self-Care Reason For Visit: ACUTE LEFT OCELCRANON CELLULITIS Discharge Diagnosis: Left olecranon bursitis, left arm cellulitis Condition on Discharge: Good Activity: Per Instructions section Non-emergency contact: Surgeon Call non-emergency contact if: your symptoms worsen Follow-up/Referrals: PCP,NO [Primary Care Provider] - Diet: Regular Addtl Attending Provider Instructions: Take amoxicillin/clavulanate twice daily for 10 more days. Continue to take potassium daily. A prescription has been sent to your [facility] pharmacy in [place]. Follow-up with orthopedic surgeon as soon as possible Pending Studies at Discharge: No Stand-Alone Forms: [facility] [place] [employer], Smoking Cessation Medications and DC Order Prescriptions: New potassium chloride 20 mEq Tablet,Er Particles/Crystals 20 meq PO DAILY Qty: 30 0RF Continued pantoprazole [Protonix] 40 mg tablet,delayed release (DR/EC) 40 mg PO DAILY Qty: 30 0RF amlodipine [Norvasc] 5 mg tablet 5 mg PO DAILY Qty: 30 0RF (DME) Auto Titrating CPAP Misc Rx Instructions: 5 to 15 cm of water, mask fit patient comfort, heated modification, compliance download capabilities, aero care; naproxen 500 mg tablet 500 mg PO BID PRN (Reason: pain) Qty: 20 0RF amoxicillin-pot clavulanate 875-125 mg tablet 1 tab PO BID 10 Days Qty: 20 0RF Discontinued sulfamethoxazole-trimethoprim [Bactrim DS] 800-160 mg tablet 1 tab PO Q12H 10 Days Qty: 20 0RF Discharge Orders: Discharge Order (Routine); Ordered 01/31/25 Ordered By: Mynor Renteria Admission Data Admit Date/Time: 01/29/25 15:04 Attending Provider: Mynor Renteria Admit Provider: Avni Varghese Primary Care Provider: PCP,NO Other Providers: Mynor Renteria [facility] Stay Data Consultations 01/29/25 14:27 ED Decision to Admit Stat 01/29/25 17:57 Consult Orthopedic Surgery Routine Diagnostic Imagining Performed 01/29/25 17:37 MR elbow LT wo con Stat Pending Results Patient Have Any Pending Studies at Discharge: No Discharge Instructions Given to Patient (Per Discharging Provider) Take amoxicillin/clavulanate twice daily for 10 more days. Continue to take potassium daily. A prescription has been sent to your [facility] pharmacy in [place]. Follow-up with orthopedic surgeon as soon as possible Total Time Total Time Spent Total Time Spent (In Minutes): 45 minutes Coding Level of Care Code 11517 INP/OBS DISCH >30 MIN Diagnoses Severe sepsis A41.9; R65.20 Cellulitis of arm, left L03.114 Acute hyponatremia E87.1 Acute hypokalemia E87.6 Hypercalcemia E83.52 Hypomagnesemia E83.42 Transaminitis R74.01 Hyperbilirubinemia E80.6 Demand ischemia I24.89 MARISSA (obstructive sleep apnea) G47.33 ETOH abuse F10.10
[2025-02-01] MEDS ORDERED: VANCOMYCIN LEVEL ONE (07:30)
== END 2025-01-31 13:07 | disposition home or self-care (01) | DRG 872 ==
LOC: SUATTDRO → ED 12:17 → 3N 15:04 → SUATTDRO 15:04 → 3N 17:08